=== PATIENT | male | born 1985 | race Caucasian/White ===

== ENCOUNTER 2016-12-08 13:00 | Day surgery (SDC) | payer OTHER ==
[2016-12-07 15:14] VITALS: BMI 24.5
[~2016-12-08] VITALS: Ht 172.7 cm; Wt 67.0 kg
[2016-12-08] MEDS ORDERED: CITA20TA11 PO (13:30)
[2016-12-08] MEDS ORDERED: TEMA15CA6 PO (13:32)
[2016-12-08] MEDS ORDERED: CEFAZOLIN 2 GM/50 ML (PMX) 50 ML IVPB SCH (14:00)
[2016-12-08] MEDS ORDERED: LACTATED RINGER'S 1,000 ML IV* SCH (14:00)
[2016-12-08] MEDS ORDERED: Metronidazole 500 MG in NS 100 ML IVPB SCH (14:00)
[2016-12-08 14:41] VITALS: Ht 172.7 cm; Wt 67.0 kg
[2016-12-08 14:43] VITALS: BP 126/80; PULSE 106; RESP 18
[2016-12-08] MEDS ORDERED: LIDOCAINE 1% (STERILE-PAK) 30 ML INJ ONE (15:25)
[2016-12-08] MEDS ORDERED: BUPIVACAINE 0.5%/EPI (SDV) 30 ML INJ ONE (15:25)
== END 2016-12-08 15:38 | disposition home or self-care (01) ==
LOC: SDS 13:00
PROVIDERS: ATTEND Surgery
DX: K60.3 Anal fistula (principal); Z53.9 Procedure and treatment not carried out, unspecified reason